=== PATIENT | male | born 1935 | race Caucasian/White ===

== ENCOUNTER 2018-07-13 12:13 | Inpatient (IN) | payer OTHER, MEDICAID ==
[~2018-07-13] VITALS: Ht 172.7 cm; Wt 109.8 kg
[2018-07-13] MEDS ORDERED: SODIUM CHLORIDE 0.9% 1,000 ML IV ONE (13:13)
[2018-07-13] MEDS ORDERED: ONDANSETRON HCL 4MG/2ML INJ IV STA (13:13)
[2018-07-13 13:28] LABS: EOSINOPHILS % 2.4 % (0.0-5.0); HEMATOCRIT. 39.9 % (42.0-52.0); HEMOGLOBIN. 13.6 g/dL (14.0-18.0); LYMPHOCYTES % 32.3 % (20.0-50.0); MEAN CORPUSCULAR HEMOGLOBIN 30.1 pg (28.0-32.0); MEAN CORPUSCULAR VOLUME 88.6 fL (80.0-94.0); MEAN PLATELET VOLUME 9.2 fl (7.4-10.4); MONOCYTES % 10.1 % (2.0-8.0); NEUTROPHILS % 54.2 % (40.0-76.0); PLATELET 141 x1000/uL (130-400); RED BLOOD CELL COUNT 4.51 mill/uL (4.7-6.1); RED CELL DISTRIBUTION WIDTH 14.7 % (11.6-14.6)
[2018-07-13 13:37] LABS: CHLORIDE 102 mEq/L (98-107); PROTHROMBIN TIME 10.5 sec (9.1-11.1)
[2018-07-13 14:40] LABS: ETHANOL BLOOD < 10 mg/dL
[2018-07-13 14:43] LABS: BETA HYDROXYBUTYRATE 0.2 mMol/L (0.0-0.3)
[2018-07-13 15:23] LABS: AMMONIA 36 uMol/L (<32)
[2018-07-13 15:38] LABS: CLARITY URINE CLEAR (CLEAR); COLOR URINE YELLOW (YELLOW); KETONES URINE TRACE (NEGATIVE); LEUKOCYTE ESTERASE URINE NEGATIVE (NEGATIVE); NITRITE URINE NEGATIVE (NEGATIVE); OCCULT BLOOD URINE NEGATIVE (NEGATIVE); PROTEIN URINE 1+ (NEGATIVE); SPECIFIC GRAVITY URINE 1.022 (1.005-1.030)
[2018-07-13 16:21] LABS: *BARBITURATES SCREEN URINE NEGATIVE (NEGATIVE); *BENZODIAZEPINES SCREEN URINE NEGATIVE (NEGATIVE); *COCAINE SCREEN URINE NEGATIVE (NEGATIVE)
[2018-07-13 16:22] LABS: *AMPHETAMINES SCREEN URINE NEGATIVE (NEGATIVE); CANNABINOID URINE SCREEN NEGATIVE (NEGATIVE); METHADONE URINE SCREEN NEGATIVE (NEGATIVE); OPIATES URINE SCREEN NEGATIVE (NEGATIVE); PHENCYCLIDINE URINE SCREEN NEGATIVE (NEGATIVE)
[2018-07-13] MEDS ORDERED: DOCUSATE SODIUM 100MG CAPSULE PO PRN (17:45)
[2018-07-13] MEDS ORDERED: ONDANSETRON HCL 4MG/2ML INJ IV PRN (17:45)
[2018-07-13] MEDS ORDERED: NITROGLYCERIN 0.4MG TABLET SL SL PRN (17:45)
[2018-07-13] MEDS ORDERED: CLONIDINE 0.1MG TABLET PO PRN (17:45)
[2018-07-13] MEDS ORDERED: IPRATROPIUM/ALBUTEROL 0.5-3(2.5)MG/3ML NEB INH PRN (17:45)
[2018-07-13] MEDS ORDERED: ZOLPIDEM TARTRATE 5MG TABLET PO PRN (17:45)
[2018-07-13] MEDS ORDERED: MAGNESIUM/ALUMINUM HYDROXIDE/SIMETHICONE 30ML UDC PO PRN (17:45)
[2018-07-13] MEDS ORDERED: DEXTROSE 50% WATER 50ML SYRINGE IV PRN (17:45)
[2018-07-13] MEDS ORDERED: ACETAMINOPHEN 325MG TABLET PO PRN (17:45)
[2018-07-13] MEDS ORDERED: GUAIFENESIN 200MG/10ML SUGAR FREE UDC PO PRN (17:45)
[2018-07-13] MEDS ORDERED: TRAMADOL 50MG TABLET PO PRN (17:45)
[2018-07-13] MEDS ORDERED: MORPHINE SULFATE 4 MG/ML CPJ (NOT FOR IM USE) IV PRN (17:45)
[2018-07-13] MEDS ORDERED: NA PHOS,M-B/NA PHOS,DI-BA ENEMA 118ML PR PRN (17:45)
[2018-07-13 18:06] LABS: TOTAL IRON BINDING CAPACITY 121 ug/dL (250-450)
[2018-07-13 18:29] LABS: FOLIC ACID (FOLATE) SERUM 15.6 ng/mL (>5.38)
[2018-07-13] MEDS: INSULIN LISPRO 100 UNITS/ML SUBCUT SCH (21:00)
[2018-07-13] MEDS: BLOOD SUGAR DIAGNOSTIC STRIP TEST SCH (21:00)
[2018-07-13] MEDS ORDERED: LEVOFLOXACIN 500MG PREMIX 100 ML IV SCH (22:00)
[2018-07-13 22:30] VITALS: BP 99/50
[2018-07-13] MEDS: ENOXAPARIN 30MG/0.3ML SYR SUBCUT SCH (22:39)
[2018-07-13] MEDS: FAMOTIDINE 20MG TABLET PO SCH (22:39)
[2018-07-14] VITALS (7 sets, daily range): BP systolic 99–127; BP diastolic 50–75
[2018-07-14 00:28] LABS: CREATINE KINASE 81 IU/L (39-308)
[2018-07-14 00:29] LABS: CREATINE KINASE MB FRACTION 2.1 ng/mL (0.5-3.6)
[2018-07-14] MEDS ORDERED: MECL-109 PO (02:41)
[2018-07-14] MEDS ORDERED: TERA2CAP4 PO (02:45)
[2018-07-14] MEDS ORDERED: TRAZ-212 PO (02:45)
[2018-07-14] MEDS ORDERED: CARV3.1242 PO (02:46)
[2018-07-14] MEDS ORDERED: ATOR20TA65 PO (02:46)
[2018-07-14] MEDS ORDERED: ACET-2853 PO (02:47)
[2018-07-14] MEDS ORDERED: OMEP20CA10 PO (02:48)
[2018-07-14] MEDS ORDERED: FINA5TAB11 PO (02:48)
[2018-07-14] MEDS: BLOOD SUGAR DIAGNOSTIC STRIP TEST SCH ×3 (06:58→17:09)
[2018-07-14] MEDS: INSULIN LISPRO 100 UNITS/ML SUBCUT SCH ×3 (06:58→17:09)
[2018-07-14 08:02] LABS: CREATINE KINASE 80 IU/L (39-308)
[2018-07-14 08:03] LABS: CREATINE KINASE MB FRACTION 1.7 ng/mL (0.5-3.6)
[2018-07-14] MEDS ORDERED: ASPIRIN 325MG EC TABLET PO SCH (09:00)
[2018-07-14] MEDS: ENOXAPARIN 30MG/0.3ML SYR SUBCUT SCH (09:25)
[2018-07-14] MEDS: FAMOTIDINE 20MG TABLET PO SCH (09:25)
[2018-07-14] MEDS ORDERED: LEVOFLOXACIN 500MG PREMIX 100 ML IV SCH (18:00)
== END 2018-07-14 21:28 | disposition short-term general hospital (02) | DRG 689 ==
LOC: ER 13:21 → 8WST 17:24 → EDBEDREQ 17:34 → ENRESERV 20:04
PROVIDERS: ADMIT Internal Medicine; ATTEND Internal Medicine
DX: N39.0 Urinary tract infection, site not specified (principal); G92 Toxic encephalopathy; M48.56XA Collapsed vertebra, not elsewhere classified, lumbar region, initial encounter for fracture; R55 Syncope and collapse; D63.8 Anemia in other chronic diseases classified elsewhere; I10 Essential (primary) hypertension; E11.9 Type 2 diabetes mellitus without complications; E78.00 Pure hypercholesterolemia, unspecified; Z79.82 Long term (current) use of aspirin; Z79.899 Other long term (current) drug therapy
CPT/HCPCS: 36415; 70450; 71045; 74176; 80053; 80061; 80305; 80307; 80329; 81003; 82010; 82140; 82550; 82553; 82607; 82746; 82962; 83036; 83540; 83550; 83605; 83690; 83880; 84484; 85025; 85610; 85730; 87040; 87086; 93005; 93306; 93970; 96374; 99285; G0482; J1650; J1956; J2405; J7030; J7040